=== PATIENT | female | born 1945 | race Caucasian/White ===

== ENCOUNTER 2018-05-19 12:47 | Inpatient (IN) ==
[2018-05-22 00:56] VITALS: RESP 18
[2018-05-22 15:43] VITALS: O2SAT 95
[2018-05-22 19:47] VITALS: BP 169/84; PULSE 88; TEMP 98
== END 2018-05-22 20:00 | disposition home or self-care (01) ==
LOC: NEPC 12:47 → NEDA 19:21 → N04 20:43
PROVIDERS: ADMIT Hospitalist; ATTEND Hospitalist